=== PATIENT | male | born 1980 | race Caucasian/White ===

== ENCOUNTER 2021-05-09 18:54 | Emergency (ER) | payer OTHER ==
[~2021-05-09] VITALS: Ht 172.7 cm; Wt 86.2 kg
[~2021-05-09 18:54] MED LIST: AMOX500 PO; DIAZ5 PO; ERYT.5TO OS; Flomax0.4 MG PO; HYDACE5 PO; HYDACE7.5 PO; HYDMOR2 PO; IBUP600 PO; IBUP800 PO; NAPR550 PO; OXYACE5T PO; PENVK500 PO; Percocet 5-3251 EACH PO; RXERYTOPTH OP; RXHYDMOR2 PO; RXIBUP800 PO; RXNAPNA550 PO; RXOXYACE PO; TRAM50 PO
== END 2021-05-09 20:21 | disposition home or self-care (01) ==
LOC: ER 18:54
DX: U07.1 COVID-19 (principal); G89.29 Other chronic pain; F17.200 Nicotine dependence, unspecified, uncomplicated
CPT/HCPCS: 99284

== ENCOUNTER 2024-12-16 08:15 | Emergency (ER) | payer OTHER ==
[~2024-12-16] VITALS: Ht 172.7 cm; Wt 95.2 kg
[2024-12-16] MEDS ORDERED: Ketorolac Tromethamine 30mg Vial IM ONE (10:25)
[2024-12-16] MEDS ORDERED: Diazepam 5 MG Tab PO ONE (10:25)
[2024-12-16] MEDS ORDERED: CYCL10 PO (10:28)
[2024-12-16] MEDS ORDERED: Norco 5-325 Ta1 EACH PO (10:28)
[2024-12-16] MEDS ORDERED: METPRE4DP PO (10:28)
[2024-12-16 10:43] VITALS: BP 136/94
== END 2024-12-16 10:49 | disposition home or self-care (01) ==
LOC: ER 08:15
DX: M54.42 Lumbago with sciatica, left side (principal); F17.210 Nicotine dependence, cigarettes, uncomplicated
CPT/HCPCS: 93971; 96372; 99283-25; A9270; J1885